=== PATIENT | male | born 1970 | race African-American/Black ===

== ENCOUNTER 2018-06-23 13:19 | Emergency (ER) | payer OTHER ==
[~2018-06-23] VITALS: Ht 175.3 cm; Wt 182.3 kg
[~2018-06-23 13:19] MED LIST: NORCO 5-325 TA1 EACH PO
[2018-06-23] MEDS ORDERED: ACTOS 45 MG45 M2 PO (13:38)
[2018-06-23] MEDS ORDERED: AMARYL4 MG PO (13:38)
[2018-06-23] MEDS ORDERED: AMLODIPINE BESY10 MG PO (13:38)
[2018-06-23] MEDS ORDERED: IRON325 PO (13:38)
[2018-06-23] MEDS ORDERED: LIPITOR 20 MG T20 M1 PO (13:39)
[2018-06-23] MEDS ORDERED: AMARYL2 MG PO (13:39)
[2018-06-23] MEDS ORDERED: COREG25 MG PO (13:39)
[2018-06-23] MEDS ORDERED: PROTONIX40 M1 PO (13:39)
[2018-06-23] MEDS ORDERED: NORCO 10-325 T1 EACH PO (14:28)
[2018-06-23] MEDS ORDERED: SENNA-DOCUSATE1 EACH PO (14:28)
[2018-06-23 14:54] VITALS: BP 167/93
== END 2018-06-23 14:55 | disposition home or self-care (01) ==
LOC: ER 13:19
DX: S83.401A Sprain of unspecified collateral ligament of right knee, initial encounter (principal); I10 Essential (primary) hypertension; E11.9 Type 2 diabetes mellitus without complications; Z88.8 Allergy status to other drugs, medicaments and biological substances; W18.39XA Other fall on same level, initial encounter; Y92.000 Kitchen of unspecified non-institutional (private) residence as the place of occurrence of the external cause; Y93.89 Activity, other specified; Y99.8 Other external cause status

== ENCOUNTER 2020-07-30 18:12 | Emergency (ER) | payer OTHER ==
[~2020-07-30] VITALS: Ht 175.3 cm; Wt 163.3 kg
[~2020-07-30 18:12] MED LIST changes: +ACTOS 45 MG45 M2 PO; +AMARYL2 MG PO; +AMARYL4 MG PO; +AMLODIPINE BESY10 MG PO; +COREG25 MG PO; +IRON325 PO; +LIPITOR 20 MG T20 M1 PO; +NORCO 10-325 T1 EACH PO; +PROTONIX40 M1 PO; +SENNA-DOCUSATE1 EACH PO
[2020-07-30] MEDS ORDERED: CELECOXIB200 MG PO (18:20)
[2020-07-30] MEDS ORDERED: DOXAZOSIN MESYLA1 MG PO (18:21)
[2020-07-30] MEDS ORDERED: METFORMIN HCL500 M3 PO (18:21)
[2020-07-30] MEDS ORDERED: LOSARTAN-HCTZ1 EAC3 PO (18:22)
[2020-07-30] MEDS ORDERED: NORFLEX100 MG PO (19:11)
[2020-07-30] MEDS ORDERED: NAPROSYN500 MG PO (19:11)
[2020-07-30 21:33] VITALS: BP 196/98
== END 2020-07-30 21:34 | disposition home or self-care (01) ==
LOC: ER 18:12
DX: G44.209 Tension-type headache, unspecified, not intractable (principal); M54.2 Cervicalgia; R42 Dizziness and giddiness; I10 Essential (primary) hypertension; E11.9 Type 2 diabetes mellitus without complications; Z98.84 Bariatric surgery status; Z79.899 Other long term (current) drug therapy; Z88.8 Allergy status to other drugs, medicaments and biological substances